=== PATIENT | male | born 1970 | race Caucasian/White ===

== ENCOUNTER 2022-02-06 22:20 | Emergency (ER) | payer MEDICARE, OTHER ==
[~2022-02-06] VITALS: Ht 170.2 cm; Wt 92.1 kg
[2022-02-06] MEDS ORDERED: IBUPROFEN 400 MG TABLET ONE (22:39)
[2022-02-06] MEDS ORDERED: IBUPROFEN 400 MG TABLET PO ONE (23:00)
[2022-02-06] MEDS ORDERED: HYDR-4275 PO (23:22)
--- NOTE | 2022-02-06 23:25 | NUR ---
Patient discharged to home in stable condition. Written and verbal after care instructions given. Patient verbalizes understanding of instruction.
[2022-02-06 23:26] VITALS: BP 130/77
[2022-02-06] MEDS ORDERED: HYDROCODONE/APAP 5/325MG TABLET ONE (23:27)
[2022-02-06] MEDS ORDERED: HYDROCODONE/APAP 5/325MG TABLET PO ONE (23:30)
== END 2022-02-07 01:00 | disposition home or self-care (01) ==
LOC: ER 22:24
DX: S42.002A Fracture of unspecified part of left clavicle, initial encounter for closed fracture (principal); V29.40XA Motorcycle driver injured in collision with unspecified motor vehicles in traffic accident, initial encounter; Y93.89 Activity, other specified; Y92.89 Other specified places as the place of occurrence of the external cause; Y99.8 Other external cause status
CPT/HCPCS: 99283; 73030; A6403

== ENCOUNTER 2022-11-22 20:54 | Emergency (ER) | payer MEDICARE, OTHER ==
[~2022-11-22] VITALS: Ht 175.3 cm; Wt 81.6 kg
[~2022-11-22 20:54] MED LIST: HYDR-4275 PO
--- NOTE | 2022-11-22 21:21 | NUR ---
REC'D A CALL FROM ISAC VELASCO [facility] WITH AUTH NUMBER: [id number] TO ADMIT. DR MAGALIS MARTELL
--- NOTE | 2022-11-22 21:55 | NUR ---
PT RESISTING BLOOD DRAW FROM LAB
--- NOTE | 2022-11-22 22:05 | NUR ---
URINE COLLECTED AND SENT TO LAB
--- NOTE | 2022-11-22 22:06 | NUR ---
SOLDERER AT PT'S BEDSIDE
--- NOTE | 2022-11-22 22:21 | NUR ---
SEEN AND EVALUATED BY MICHAEL FROM CRISIS TEAM
[2022-11-22 22:31] LABS: BASOPHILS % (AUTO) 0.3 % (0.0-2.0); EOSINOPHILS % (AUTO) 0.9 % (0.0-6.0); HEMATOCRIT 34 % (39-51); HEMOGLOBIN 10.5 g/dL (13.5-17.5); LYMPHOCYTES # (AUTO) 2.1 K/uL (0.8-4.8); LYMPHOCYTES % (AUTO) 29.3 % (20.0-44.0); MEAN CORPUSCULAR HGB CONC 31 g/dl (31.0-36.0); MEAN CORPUSCULAR VOLUME 61 fL (80-96); MONOCYTES # (AUTO) 1.2 K/uL (0.1-1.30); MONOCYTES % (AUTO) 17.5 % (2.0-12.0); NEUTROPHILS # (AUTO) 3.7 K/uL (1.8-8.9); PLATELET COUNT (AUTO) 216 K/uL (150-450); RED BLOOD CELL COUNT(AUTO) 5.56 MIL/uL (4.5-6.0); WHITE BLOOD COUNT (AUTO) 7.1 K/uL (4.3-11.0)
--- NOTE | 2022-11-22 22:34 | NUR ---
COVID ANTIGEN SWAB COLLECTED AND SENT TO LAB
[2022-11-22 22:46] LABS: BILIRUBIN,URINE NEGATIVE (NEGATIVE); COLOR,URINE YELLOW (YELLOW); LEUKOCYTE ESTERASE ,URINE 3+ (NEGATIVE); NITRITE, URINE NEGATIVE (NEGATIVE); PROTEIN,URINE 2+ mg/dl (NEGATIVE); UGLUCOSE NEGATIVE (NEGATIVE); UROBILINOGEN,URINE 0.2 EU/dL (0.2)
[2022-11-22 22:47] LABS: ALANINE AMINOTRANSFERASE 52 U/L (12-78); ALBUMIN 3.2 g/dL (3.4-5.0); ALKALINE PHOSPHATASE 110 U/L (46-116); ASPARTATE AMINOTRANSFERASE 21 U/L (15-37); BILIRUBIN,DIRECT 0.2 mg/dL (0.0-0.2); BILIRUBIN,TOTAL 0.6 mg/dL (0.2-1.0); CALCIUM, SERUM 10.5 mg/dL (8.5-10.1); CARBON DIOXIDE 22 mmol/L (21-32); CHLORIDE 101 mmol/L (98-107); CREATININE 1.5 mg/dL (0.6-1.3); GLUCOSE 96 mg/dL (74-106); SODIUM SERUM 135 mmol/L (136-145); TOTAL PROTEIN, SERUM 7.6 g/dL (6.4-8.2); UREA NITROGEN, BLOOD 18 mg/dL (7-18)
[2022-11-22 22:48] LABS: ALCOHOL, BLOOD < 3 mg/dL (0-10)
[2022-11-22 22:59] LABS: BACTERIA,URINE 1+ /HPF (None Seen); MUCUS,URINE Moderate /LPF (None Seen); RBC,URINE 0-2 /HPF (0-2); SQUAMOUS EPITHELIAL CELL,UR None Seen /HPF (None Seen); WBC,URINE 21-50 /HPF (0-3)
[2022-11-22 23:06] LABS: BAND % (MANUAL) 1 % (0.0-5.0); LYMPHOCYTES % (MANUAL) 32 % (16-48); MONOCYTES % (MANUAL) 17 % (0-11.0); MYELOCYTES % 2 % (0-0); NEUTROPHILS % (MANUAL) 48 (42-76)
[2022-11-23 00:11] VITALS: BP 120/89
--- NOTE | 2022-11-23 00:11 | NUR ---
REPORT GIVEN TO JAZZMINE FROM [facility] FOR [facility].
--- NOTE | 2022-11-23 00:12 | NUR ---
Patient discharged to home in stable condition. Written and verbal after care instructions given to ADELIA Marks to endorse to [facility]. Verbalizes understanding of instruction.
--- NOTE | 2022-11-23 00:12 | NUR ---
ADELIA SAMUEL AT PT'S BEDSIDE TO D/C PT BACK TO FACILITY
== END 2022-11-23 00:22 ==
LOC: ER 20:56
DX: R46.1 Bizarre personal appearance (principal); K21.9 Gastro-esophageal reflux disease without esophagitis; D64.9 Anemia, unspecified; Z79.899 Other long term (current) drug therapy; Z20.822 Contact with and (suspected) exposure to COVID-19
CPT/HCPCS: 36415; 80048-TC; 80076-TC; 81001; 83690-TC; 85025-TC; 87086-TC; C9803; G0480